=== PATIENT | male | born 1965 | race Caucasian/White ===

== ENCOUNTER 2022-08-13 17:35 | Outpatient (REF) | payer OTHER, SELFPAY ==
[2022-08-13 22:15] LABS: HCT 48.7 % (40.0-50.0); HGB 16.8 g/dL (13.5-17.5); MCH 31.6 pg (27.0-33.0); MCHC 34.5 % (32.0-36.0); MCV 92 fL (80-95); MPV 10.1 fL (8.0-11.0); Platelet Count 234 10^3/uL (130-400); RBC 5.32 10^6/uL (4.36-5.78); RDW 12.8 % (11.8-14.1); RDW-SD 43.2 fL; WBC 9.06 10^3/uL (4.4-10.8)
[2022-08-13 22:30] LABS: Hemoglobin A1C 5.7 % (<5.7)
[2022-08-13 22:50] LABS: Vitamin D 25 Total 48.2 ng/mL (30-100)
[2022-08-13 22:56] LABS: ALT 55 U/L (16-63); AST 34 U/L (15-37); Albumin 4.5 g/dL (3.4-5.0); Alkaline Phosphatase 86 U/L (46-116); Anion Gap 8.9 mmol/L (3-11); BUN 8 mg/dL (7-18); Bilirubin, Total 0.6 mg/dL (0.2-1.0); CO2 29.1 mmol/L (21.0-32.0); Calcium 9.4 mg/dL (8.5-10.1); Calculated LDL 108 mg/dL (<100); Chloride 103 mmol/L (98-107); Cholesterol 191 mg/dL (<200); Estimated GFR 87.24 (mL/min/1.73m2); Glucose 107 mg/dL (74-106); HDL Cholesterol 70 mg/dL (40-60); Potassium 4.2 mmol/L (3.5-5.1); Sodium 141 mmol/L (136-145); TSH (W/Ref FT4) 1.73 uIU/mL (0.36-3.74); Total Protein 8.2 g/dL (6.4-8.2); Triglyceride 65 mg/dL (<150); Vitamin B12 382 pg/mL (193-986)
[2022-08-14 21:12] LABS: PSA, Screening 1.3 ng/mL (<=3.5)
== END 2022-08-13 17:36 | disposition home or self-care (01) ==
LOC: NCHCN 17:35
PROVIDERS: Visit Provider Family Medicine
DX: R06.09 Other forms of dyspnea (principal); R78.89 Finding of other specified substances, not normally found in blood; I10 Essential (primary) hypertension; E78.5 Hyperlipidemia, unspecified; I49.1 Atrial premature depolarization; I45.10 Unspecified right bundle-branch block; Z90.89 Acquired absence of other organs; Z12.5 Encounter for screening for malignant neoplasm of prostate; Z79.899 Other long term (current) drug therapy
CPT/HCPCS: 80053; 80061; 82306; 84153; 85027; 82607; 83036; 84443

== ENCOUNTER 2022-11-04 02:26 | Outpatient (CLI) | payer OTHER, SELFPAY ==
--- NOTE | 2022-11-04 14:00 | DI.US_ITS ---
APPROVED REPORT EXAM: Stress Echocardiogram Stress Nurse: Ilsa Chávez RN Ordering Provider: DURGA GARCIA, Contact Number: [phone] HR: 92 bpm BP: 146/90 mmHg Rhythm: NSR w/ PAC's and RBBB Indications: Dyspnea on Exertion, right bundle branch block Medical History Medical History: Hx of PAC's and RBBB, JOE, HLD, HTN, partial thyroidectomy Medications: Aspirin, Simvastatin, Losartan Allergies: None Cardiac Risk Factors: +HTN, +HLD, former smoker, +family history Previous Cardiac Procedures: None Pretest Chest Pain Characteristics: None Exercise History: Physically active Physical Disabilities: None Stress Test Details Test: Exercise stress testing was performed using a Gianni protocol. Rest Stress HR Resting HR Supine: 92 bpm Max Heart Rate (APMHR): 162 bpm Resting HR Standin bpm Target HR (85% APMHR): 138 bpm Max HR Achieved: 164 bpm % of APMHR: 101 Recovery HR: 106 bpm HR response to stress: Normal HR response to stress BP Resting BP Supine: 146/90 mmHg Resting BP Standin/80 mmHg Max BP: 160/98 mmHg Recovery BP: 152/98 mmHg BP response to stress: Normal blood pressure response to stress. ECG Resting ECG: Sinus Rhythm, RBBB Ectopy: frequent PAC's Stress ECG: Sinus Tachycardia, RBBB ST Change: No significant ST segment changes noted Arrhythmia: None Recovery ECG: Sinus Rhythm, RBBB Recovery ST Change: No significant ST segment changes noted Recovery Arrhythmia: PAC's Clinical Reason for Termination: THR Max reached Stress Symptoms: None Exercise duration: 3 min47 sec Highest Stage Reached: Stage 2: 2.5 mph at 12% grade. Exercise capacity: 5.56 METs Angina Score: None Carney Treadmill Score: 3.2 Rate Pressure Product: 08762 Stress ECG Conclusion 1. Resting electrocardiogram showed right bundle branch block 2. Patient exercised on the Gianni protocol completed a workload of 5.56 METS 3. Normal heart rate and blood pressure response to exercise. The patient achieved 100% of predicted heart rate for age 4. There was no electrocardiographic evidence of myocardial ischemia 5. There were no significant dysrhythmias 6. There was no echocardiographic evidence of myocardial ischemia. Ejection fraction improved from 6 0% to greater than 75% with augmented contractility of all segments Carney Treadmill Score is 3.2 which is Moderate risk. Stress Test Summary STAGE Time (mins) Speed (mph) Grade (%) HR BP SYMPTOMS METS Supine 92 146/90 Standing 107 130/80 1 3 1.7 10 152 4.6 2 6 2.5 12 160 7 1 min recovery 130 3 min recovery 118 160/98 6 min recovery 105 140/98 9 min recovery 106 152/98 Patient tolerated stress very well but was notably nervous and anxious. 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 Patient denied any symptoms before, during, or after stress test. Echo Findings The Pre-Stress Echocardiogram showed normal left ventricular contractility with an estimated Ejection Fraction of about 60%. The Peak-Stress Echocardiogram showed normal left ventricular contractility with an estimated Ejectio n Fraction of about 75%. Conclusion Resting electrocardiogram showed right bundle branch block Patient exercised on the Gianni protocol completed a workload of 5.56 METS Normal heart rate and blood pressure response to exercise. The patient achieved 100% of predicted he art rate for age There was no electrocardiographic evidence of myocardial ischemia There were no significant dysrhythmias There was no echocardiographic evidence of myocardial ischemia. Ejection fraction improved from 60% to greater than 75% with augmented contractility of all segments Plain Carney Treadmill Score is 3.2 which is Moderate risk.
== END 2022-11-04 02:46 ==
PROVIDERS: Visit Provider Family Medicine
DX: R06.09 Other forms of dyspnea (principal); I45.10 Unspecified right bundle-branch block
CPT/HCPCS: 93350; 93017

== ENCOUNTER 2023-07-23 17:52 | Outpatient (REF) | payer OTHER, SELFPAY ==
--- NOTE | 2023-07-23 10:40 | SKI_PTH ---
PATIENT: Ankit Marroquin JR LOC: [facility] U#:[id number] AGE/SX: 57/M ROOM: RE07/23/[address]: Tammy Mccarty : 1965 BED: DIS: 07/23/2023 SPEC #: [id number] RECD: 07/24/23 12:34 STATUS: HOLLY REQ #: [id number] SHANTAL: 07/23/23 10:[address]: Tammy Mccarty DEPT: Surgical Specimen RECD BY: Dorothy Mcdonnell ENTERED: 07/24/23 12:35 SP TYPE: KELIN LIPSCOMB DR: Unknown,Unknown Tissues: 1 - SKIN BIOPSY(SHAVE/PUNCH) Procedures: SKIN LEVEL 4 Comments: [id number]
== END 2023-07-23 17:53 | disposition home or self-care (01) ==
LOC: NCHCN 17:52
PROVIDERS: Visit Provider Family Medicine
DX: D48.5 Neoplasm of uncertain behavior of skin (principal); L82.1 Other seborrheic keratosis
CPT/HCPCS: 88305

== ENCOUNTER 2024-08-02 17:52 | Outpatient (REF) | payer OTHER, SELFPAY ==
[2024-08-02 18:18] LABS: Abs Immature Grans 0.01 10^3/uL (0.0-0.06); Absolute Basophil Count 0.03 10^3/uL (0.0-0.2); Absolute Eosinophil Count 0.11 10^3/uL (0.0-0.7); Absolute Lymphocyte Count 2.94 10^3/uL (1.2-3.4); Absolute Monocyte Count 0.68 10^3/uL (0.1-0.8); Absolute Neutrophil Count 2.78 10^3/uL (1.2-6.7); Basophils % 0.5 %; Eosinophils % 1.7 %; HCT 48.1 % (40.0-50.0); HGB 16.5 g/dL (13.5-17.5); Immature Grans % 0.2 %; Lymphocytes % 44.9 %; MCH 31.6 pg (27.0-33.0); MCHC 34.3 % (32.0-36.0); MCV 92 fL (80-95); Monocytes % 10.4 %; Neutrophils % 42.3 %; Platelet Count 248 10^3/uL (130-400); RBC 5.22 10^6/uL (4.36-5.78); RDW 12.7 % (11.8-14.1); WBC 6.55 10^3/uL (4.4-10.8)
[2024-08-02 18:27] LABS: Iron 108 ug/dL (65-175); Total Iron Binding Capacity 291 ug/dL (250-450); Transferrin Sat 37 % (20-55)
[2024-08-02 18:44] LABS: Hemoglobin A1C 5.8 % (<5.7)
[2024-08-02 18:56] LABS: ALT 43 U/L (16-63); AST 23 U/L (15-37); Albumin 4.2 g/dL (3.4-5.0); Alkaline Phosphatase 84 U/L (46-116); Anion Gap 6.7 mmol/L (3-11); BUN 14 mg/dL (7-18); Bilirubin, Total 0.5 mg/dL (0.2-1.0); CO2 30.3 mmol/L (21.0-32.0); Calcium 9.4 mg/dL (8.5-10.1); Calculated LDL 76 mg/dL (<100); Chloride 106 mmol/L (98-107); Cholesterol 161 mg/dL (<200); Estimated GFR 86.16 (mL/min/1.73m2); Glucose 92 mg/dL (74-106); HDL Cholesterol 58 mg/dL (>or=40); Potassium 4.6 mmol/L (3.5-5.1); Sodium 143 mmol/L (136-145); TSH (W/Ref FT4) 1.99 uIU/mL (0.36-3.74); Total Protein 7.5 g/dL (6.4-8.2); Triglyceride 135 mg/dL (<150); Vitamin B12 478 pg/mL (193-986)
[2024-08-03 18:32] LABS: PSA, Screening 1.7 ng/mL (<=4.5)
== END 2024-08-02 17:53 | disposition home or self-care (01) ==
LOC: NCHCN 17:52
PROVIDERS: Visit Provider Family Medicine
DX: R00.0 Tachycardia, unspecified (principal); I10 Essential (primary) hypertension; R73.03 Prediabetes; E78.5 Hyperlipidemia, unspecified; E53.8 Deficiency of other specified B group vitamins; Z12.5 Encounter for screening for malignant neoplasm of prostate
CPT/HCPCS: 80053; 80061; 84153; 82607; 83036; 83540; 83550; 84443; 85025

== ENCOUNTER 2025-01-20 09:03 | Day surgery (SDC) | payer OTHER, SELFPAY ==
--- NOTE | 2025-01-19 17:14 | W.PM.DSUDISC ---
Date of service: 01/20/25 Discharge Plan Disposition Patient Disposition: Home Condition: Good Discharge Details Reason For Visit: screening colonoscopy Attending Provider: Eric Ramirez Primary Care Provider: Tammy Mccarty Home Meds and New Rx's Prescriptions: Continued aspirin [Adult Low Dose Aspirin] 81 mg tablet,delayed release (DR/EC) 81 mg PO DAILY Centrum Silver 0.4 mg-300 mcg- 250 mcg tablet 1 tab PO DAILY losartan 50 mg tablet 50 mg PO DAILY metoprolol succinate 25 mg tablet extended release 24 hr 25 mg PO HS cholecalciferol (vitamin D3) 25 mcg (1,000 unit) capsule 25 mcg PO DAILY simvastatin 40 mg tablet 40 mg PO DAILY zinc acetate 50 mg (zinc) capsule 50 mg PO DAILY Discontinued bisacodyl [Dulcolax (bisacodyl)] 5 mg tablet,delayed release (DR/EC) 5 mg PO ONCE Qty: 4 0RF Rx Instructions: Take per colonoscopy instructions provided by ordering providers office polyethylene glycol 3350 17 gram/dose powder 17 g PO ONCE Qty: 238 0RF Rx Instructions: Take per colonoscopy instructions provided by ordering providers office Discharge Instructions Instructions: Diverticulosis Additional Instructions: Ankit, was a pleasure meeting you today, and hope you feel well after the procedure. Things went very smoothly. I did not find any tumors, polyps, or anything worrisome. You do have diverticulosis as we discussed beforehand. I will attach a little bit of information here about typical approaches to diverticular management. Essentially, however, I recommend a diet that is rich in fiber, staying well-hydrated, and avoiding constipation. If you need anything, or have any questions at all, please do not hesitate to ask at any time otherwise, I look forward to seeing you in 10 years. 1. If tolerated, consume a soft, low fiber diet for 1-2 days. 2[address] Do not drive, drink alcohol, operate machinery, make critical decisions, or do activities that require coordination or balance for 24 hours. 3. Because air was put into your colon during the procedure, expelling air from your rectum (passing gas or farting) is normal. 4. You may not have a bowel movement for 1-3 days because of the colonoscopy prep. This is normal. 5. Go directly to the emergency room if you notice any of the following: Develop chills (warm to touch), or if you have a thermometer and your temperature is above 101 Difficulty breathing or difficultly swallowing Persistent vomiting Severe abdominal pain, other than gas cramps Severe chest pain Black, tarry stools Any bleeding ? exceeding one tablespoon 6. Call your physician if the site where your intravenous was started becomes red, swollen, painful, and warm to touch. 7. Your physician has reviewed your pre-procedure medications. Please continue to take those medications as previously ordered. You will be given specific information/education regarding any changes to your medications before leaving. Stand Alone Forms: Anesthesia Discharge Inst., Colonoscopy Post Instructions, Leah Ng (DSU) Activity:: Activity as Tolerated Diet:: As Tolerated Discharge Orders Discharge Orders: Discharge Order (Routine); Ordered 01/19/25 Ordered By: Eric Ramirez DS: Diagnosis Discharge Diagnosis (1) Encounter for screening colonoscopy: Status: Acute Asessment and Plan: Diverticulosis; otherwise negative screening colonoscopy, recommend 10-year interval for the next follow-up.
--- NOTE | 2025-01-19 17:15 | W.COLOREPORT ---
Date of service: 01/20/25 Time of Service: 10:53 Colonoscopy Report Date of procedure: 01/20/25 Pre-op diagnosis general: screening colonoscopy Post-op diagnosis procedure note: other (Diverticulosis otherwise negative screening colonoscopy) Procedure: colonoscopy Surgeon: Eric Ramirez Anesthesia Type: General:No Airway Estimated blood loss (mL): 0 Pathology: none sent Complications: None Disposition: same day Indications: Ankit is a 59 year old man who needs a screening colonoscopy Prep: Miralax/Dulcolax Procedure Start Time: 10:31 Procedure End Time: 10:45 Retraction Time: 10 Findings: Diverticulosis Procedure Description: After the induction of anesthesia, and with the patient in left lateral decubitus position, I began by performing an external anorectal exam.? Perineum and skin were normal, as was the anal verge.? There was no evidence of external hemorrhoids.? Next, I performed a digital rectal exam.? I did not appreciate any abnormal findings.? Next, I advanced a colonoscope into the rectal vault.? I performed retroflexion.? This appeared normal.? Using irrigation, I then advanced the colonoscope beyond the rectal folds and into the sigmoid colon before advancing towards the cecum.? The scope was noted to be in the cecum by identification of the ileocecal valve and appendiceal orifice.? I then began withdrawing the colonoscope using repeated irrigation as necessary for full evaluation of the colonic mucosa. ?There is descending and sigmoid diverticulosis. Once the scope was withdrawn to the level of the rectum, great care was taken to examine portions of the rectal folds.? Finally, the scope was withdrawn and the patient was brought to the same-day surgery recovery unit as the anesthetic wore off. ?The findings and instructions were shared with the patient prior to discharge. [place] Bowel Prep [place] Bowel Prep Right Colon: 3 Left Colon: 2 Transverse Colon: 3 Total Score: 8
[2025-01-20 09:31] VITALS: BP 132/98; PULSE 108; RESP 18; TEMP 36.6; O2SAT 96
[2025-01-20] MEDS: Lactated Ringers 1,000 ML 80 ML IV (09:51)
--- NOTE | 2025-01-20 10:19 | W.ANESPRE ---
General Info Date of Service Date Performed: 01/20/25 Height: 5 ft 9 in Weight: 86.8 kg Body Mass Index (BMI): 28.2 Surgical Procedure: Operation Date: 01/20/25 10:35 Proposed Procedure Side Surgeon p Tania aRmirez MD Meds Allergies and Home Medications Allergies Allergy/AdvReac Type Severity Reaction Status Date / Time No Known Allergies Allergy Verified 01/20/25 09:37 Home Medication ?Medication ?Instructions ?Recorded aspirin 81 mg tablet,delayed 81 mg PO DAILY 09/28/24 release (Adult Low Dose Aspirin) cholecalciferol (vitamin D3) 25 25 mcg PO DAILY 09/28/24 mcg (1,000 unit) capsule losartan 50 mg tablet 50 mg PO DAILY 09/28/24 metoprolol succinate 25 mg 25 mg PO HS 09/28/24 tablet,extended release 24 hr mgtvdgtm-hea-glmkz acid 0.4 1 tab PO DAILY 09/28/24 mg-lycopene 300 mcg-lutein 250 mcg tablet (Centrum Silver) simvastatin 40 mg tablet 40 mg PO DAILY 09/28/24 zinc acetate 50 mg (zinc) capsule 50 mg PO DAILY 09/28/24 Current Visit Medications: Current Medications Generic Name Dose Route Start Last Admin Trade Name Freq PRN Reason Stop Dose Admin Ringer's Solution 1,000 mls @ 80 mls/hr 01/20/25 06:00 01/20/25 09:51 IV 01/20/25 23:59 80 mls/hr INFUSION MILDRED Administration IV Miscellaneous Supplies 1 each 01/20/25 06:00 Iv Access IV 01/20/25 23:59 DIRECTED MILDRED Sodium Chloride 0 ml 01/20/25 06:00 Normal Saline Flush 10 Ml Syr IV 01/20/25 23:59 PRN PRN Sodium Chloride 0 ml 01/20/25 06:00 Normal Saline 10 Ml Vial IJ 01/20/25 23:59 DIRECTED PRN Sterile Water 0 ml 01/20/25 06:00 Water,Injection,Sterile 10 Ml Vial IJ 01/20/25 23:59 DIRECTED PRN PFSH Active Problems Active Problems: Problem Status Onset Code Encounter for screening colonoscopy Acute Z12.11 Essential hypertension Acute I10 Restless leg Acute G25.81 Hyperlipidemia Acute E78.5 Medical History Medical History Sinus tachycardia Atrial premature complex Right bundle-branch block Migraine Vitamin B12 deficiency Surgical History Surgical History Hx of thyroidectomy Hx of colonoscopy Tobacco Smoking/Tobacco Use Status: Never Passive smoking exposure: No Alcohol Alcohol Intake: former Substance Use Substance use type: does not use Vital Signs and Lab Results Vital Signs Most Recent Vital Signs in EMR: Most Recent Vital Signs Temp Pulse Resp BP Pulse Ox 36.6 C 108 H 18 132/98 H 96 01/20/25 09:31 01/20/25 09:31 01/20/25 09:31 01/20/25 09:31 01/20/25 09:31 Anesthesia Assessment and Plan Anesthesia History Personal History: No History of Anesthesia Complications Family History: No Family History of Anesthesia Complications Exercise Tolerance Exercise Tolerance: Metabolic Equivalents<4 Pertinent Negatives Pertinent Negatives: No Symptoms of GERD Cardiac & Pulmonary Exam Cardiac Exam: Normal S1/S2 Heart Sounds Pulmonary Exam: Clear Bilateral Breath Sounds Implantable Cardiac Device Does patient have a Pacemaker or an ICD?: No Airway Exam Known Difficult Airway: No Mallampati Class: 2 Mouth Opening: Normal (> 3cm) Thyromental Distance: Greater than 3 cm Neck Range of Motion: Full ROM Neck Circumference: Normal Teeth Condition: Normal Dentition ASA Classification ASA Score: ASA 2 Emergency Case?: No NPO Status NPO Status: NPO Clears >2 hours, Solids >8 hours Anesthesia Plan Resuscitation Status: Full Code Anesthesia Technique: General Anesthesia Airway Planned: Natural Airway Monitors Used: Standard Monitors
[2025-01-20 10:22] VITALS: BMI 28.2
[2025-01-20 10:52] VITALS: BP 106/86; PULSE 100; RESP 14; TEMP 36.2; O2SAT 96
--- NOTE | 2025-01-20 10:54 | W.ANESPOSTOP ---
Postoperative Evaluation Date, Time and Location Date Performed: 01/20/25 Time Performed: 10:55 Patient Location: Day Surgery Unit Vital Signs Most Recent Imported Vital Signs: Most Recent Vital Signs Temp Pulse Resp BP Pulse Ox 36.6 C 108 H 18 132/98 H 96 01/20/25 09:31 01/20/25 09:31 01/20/25 09:31 01/20/25 09:31 01/20/25 09:31 Pain Score Most Recent Pain Score: Most Recent Pain Score Pain Level 0 01/20/25 09:31 Assessment Mental Status: Awake (Alert & Oriented to Patient Baseline) Airway and Respiratory Function: Patent airway with normal (patient baseline) respiratory exam Cardiovascular Function: Hemodynamically Stable Hydration Status: Adequately Hydrated Nausea & Vomiting: No Nausea or Vomiting Pain: Pt. Denies Any Pain Peripheral Nerve Block: Patient did not receive a nerve block
[2025-01-20 11:15] VITALS: BP 126/97; PULSE 93; RESP 16; TEMP 36.3; O2SAT 95
== END 2025-01-20 11:27 | disposition home or self-care (01) ==
PROVIDERS: PCP Family Medicine; Visit Provider Surgery
PROC: 0DJD8ZZ Inspection of Lower Intestinal Tract, Via Natural or Artificial Opening Endoscopic (ICD-10-PCS; CPT 45378; principal; 2025-01-20 10:30)
DX: Z12.11 Encounter for screening for malignant neoplasm of colon (principal); K57.30 Diverticulosis of large intestine without perforation or abscess without bleeding
CPT/HCPCS: 45378; J2003; J2704